=== PATIENT | male | born 1980 | race Caucasian/White ===

== ENCOUNTER 2018-09-24 08:44 | Emergency (ER) | payer BC ==
[~2018-09-24] VITALS: Ht 172.7 cm; Wt 90.7 kg
[~2018-09-24 08:44] MED LIST: AZITHROMYCIN 2250 MG PO; BACITRACIN 500U30 GM TOP; BENADRYL25 MG PO; CIPRO HC OTIC S10 ML OT; CLEOCIN HCL300 MG PO; EAR DROPS; FLEXERIL PO; FLONASE 0.05%50 MCG NASAL; HYDROCODON-ACE1 EAC7 PO; IBUPROFEN 200200 M1 PO; IBUPROFEN 800800 MG PO; KEFLEX500 MG PO; MEDROLDOSEPACK PO; MOBIC7.5 M1 PO; NOHOMEMEDICATIONS; NORCO 5-325 TA1 EACH PO; PREDNISONE 20 M20 M1 PO; PREDNISONE 20 M20 MG PO; ULTRAM 50MG TAB50 MG PO; VISTARIL 25 MG25 M1 OR; XANAX 1 MG TABLE1 MG PO; ZPAK PO
[2018-09-24] MEDS ORDERED: NORCO 5-325 TA1 EAC1 PO (09:38)
[2018-09-24 09:46] VITALS: BP 122/88
== END 2018-09-24 09:47 | disposition home or self-care (01) ==
LOC: M.ERS 08:44
DX: S93.692A Other sprain of left foot, initial encounter (principal); Z88.0 Allergy status to penicillin; X50.1XXA Overexertion from prolonged static or awkward postures, initial encounter; Y92.89 Other specified places as the place of occurrence of the external cause; Y93.89 Activity, other specified; Y99.8 Other external cause status